=== PATIENT | female | born 1970 | race Caucasian/White ===

== ENCOUNTER 2019-09-15 05:41 | Day surgery (SDC) | payer BC ==
--- NOTE | 2019-09-07 16:50 | HP ---
HISTORY AND PHYSICAL: DATE OF ADMISSION: 09/15/19 She will be coming into the main campus of [facility] on 09/15/19 for right knee arthroscopic surgery. CHIEF COMPLAINT: Right knee pain posteriorly and medially. HISTORY OF PRESENT ILLNESS: She has been having trouble with this knee since March. There was not a particular injury, but it has become very bothersome and difficulty with pivoting, getting up and down stairs, and generally walking. She has been seen and checked by Dr. Rivers, Dr. Moore, Dr. Vanessa, and a recent MRI scan was done showing medial meniscal tearing and some sprain of the ACL. We believe the main problem is the meniscal tearing, and we have recommended the arthroscopic surgery. PAST MEDICAL HISTORY: General health has been good. No heart attack. No chest pain. She is able to walk up 2 flights of stairs without chest pain, without shortness of breath. She is a smoker and is working with [employer]. She does social drinking. She has not had any cancers. No history of DVT or pulmonary embolism. PAST SURGICAL HISTORY: Includes bilateral carpal tunnel syndromes, reduction mammoplasty, exploratory laparotomy for [employer] concerns, irritable bowel syndrome, several D and C's, low back surgery in 2010 including spinal instrumentation, and gallbladder removal in 2011. She has not had major complications with anesthesia. ALLERGIES: She is allergic only to ADHESIVE and she knows she is okay to have Ancef. FAMILY HISTORY: Positive for cancer, cardiac and diabetes. SOCIAL HISTORY: Lives with her , works at the hospital. At home, there are 5 stairs to get in and out of the house. She knows that she is okay to have Ancef. PHYSICAL EXAMINATION GENERAL: Well nourished, well developed, not acutely distressed. VITAL SIGNS: Temp 99, weight 170, pulse 97, blood pressure 138/88. HEENT: The head is NC/AT. LUNGS: Clear bilaterally. HEART: Regular. S1, S2 normal. No murmurs or gallops. ABDOMEN: Soft, nontender. I do not appreciate organomegaly. EXTREMITIES: The right knee shows a small effusion. Extension 0, flexion 120. Tenderness to the medial joint line, marked medial joint discomfort with external rotation of the leg. MCL stable. [place] and posterior drawer are normal. Lateral collateral stable. The thigh and calf are soft. NEUROLOGIC: Cranial nerves are grossly intact. IMPRESSION: Right knee medial meniscal tearing. PLAN: We have recommended arthroscopic surgery for the right knee. Goals, risks, and complications have been reviewed. Questions were answered and guarantees were not made regarding the outcome of arthroscopic surgery right knee on 09/15/19. [id number]/[facility] #: [id number] MTDD
[~2019-09-15 05:41] MED LIST: Buffered Lidocaine 1% SYRIN* 1 ML/SYRINGE INTRADERM ONE
[2019-09-15] MEDS ORDERED: Lactated Ringers 1000 ML Bag* 1,000 ML IV SCH (06:00)
[2019-09-15] MEDS ORDERED: Sodium Citrate/Citric Acid* 15 ML UDC PO ONE (06:00)
[2019-09-15] MEDS ORDERED: ceFAZolin 2 GM in NS PREMIX(*) 2 GM/100 ML BAG IVPB ONE (06:11)
[2019-09-15] MEDS ORDERED: Buffered Lidocaine 1% SYRIN* 1 ML/SYRINGE INTRADERM ONE (06:11)
[2019-09-15] MEDS ORDERED: Sodium Citrate/Citric Acid* 15 ML UDC ONE (06:11)
[2019-09-15] MEDS ORDERED: Bupivacaine 0.5% W/EPI SDV* 10 ML VIAL INJ ONE (07:13)
[2019-09-15] MEDS ORDERED: Propofol* 10 MG/ML 20 ML BTL ONE (07:25)
[2019-09-15] MEDS ORDERED: Midazolam* 1 MG/ML 2 ML VIAL (2 MG) ONE (07:25)
[2019-09-15] MEDS ORDERED: Lidocaine 2% PF * 5 ML VIAL ONE (07:25)
[2019-09-15] MEDS ORDERED: fentaNYL* 50 MCG/ML 2 ML VIAL (100 MCG VIAL) ONE ×3 (07:25→09:39)
[2019-09-15] MEDS ORDERED: Dexamethasone IV* 4 MG/ML 1 ML (4 MG) ONE (07:32)
[2019-09-15] MEDS ORDERED: Ondansetron INJ* 2 MG/ML VIAL ONE (07:55)
[2019-09-15] MEDS ORDERED: Ketorolac INJ* 30 MG/ML 1 ML VIAL ONE (07:55)
[2019-09-15] MEDS ORDERED: DiMENhydriNATE IV* 50 MG/ML VIAL IV PUSH PRN (08:07)
[2019-09-15] MEDS ORDERED: fentaNYL* 50 MCG/ML 2 ML VIAL (100 MCG VIAL) IV PRN (08:07)
[2019-09-15] MEDS ORDERED: Naloxone* 0.4 MG/ML 1 ML VIAL IV PRN (08:07)
[2019-09-15] MEDS ORDERED: Acetaminophen IV 1GM/100ML * 1,000 MG/100 ML VIAL IVPB ONE (08:07)
[2019-09-15] MEDS ORDERED: Succinylcholine* 20 MG/ML 10 ML VIAL ONE (08:47)
[2019-09-15 10:39] VITALS: BP 115/76
--- NOTE | 2019-09-15 14:08 | OP ---
DATE OF OPERATION: 09/15/19 - SDS DATE OF : 68 SURGICAL CARE: Right knee. SURGEON: Adria Estevez MD. ASSISTANTS: IMMANUEL Wheeler. ANESTHESIOLOGIST: Dr. Bryan Liu. ANESTHESIA: LMA, general. PRE-OP DIAGNOSIS: Right knee medial meniscal tear. POST-OP DIAGNOSIS: Right knee medial meniscal tear. OPERATIVE PROCEDURE: Right knee subtotal medial meniscectomy. COMPLICATIONS: There were no complications. DRAINS: There were no drains. TOURNIQUET: Tourniquet control was utilized on the right leg 275 and then 300. ESTIMATED BLOOD LOSS: 100 mL. REPLACEMENT: Crystalloid fluids. INDICATION: Persistent medial right knee pain. DESCRIPTION OF PROCEDURE: The patient was brought to the operating room and placed on the operating room table in supine position. Following the administration of the anesthetic, the right lower extremity was wrapped with a proximal thigh tourniquet. The leg was given a preliminary chlorhexidine prep and then a formal ChloraPrep from the tourniquet to the foot. After prepping, draping, and sealing off, we did our universal protocol time-out confirming Elva Comer and a plan for right knee arthroscopic surgery. We all agreed and we proceeded. The tourniquet was elevated to 275. The initial survey of the joint showed that the patellofemoral joint was in good condition. The medial and lateral gutters were clear. The ACL was in continuity (MRI scan had concern about ACL injury). The medial femoral condyle, medial tibial plateau were in good condition. The medial meniscus was torn up in complex fashion posteriorly. In the initial part of the case, we were visualizing and then after some anterior synovectomy to remove the ligamentum mucosa, we had some bleeding and the inflow catheter was repositioned as it was outside the joint and then the joint was irrigated. We were able to proceed with partial medial meniscectomy. The meniscectomy was completed with a curved shaver, small and larger baskets and left curving basket. Care was taken not to injure the adjacent medial femoral condyle, medial tibial plateau during the meniscectomy and the meniscectomy was done with the knee in valgus stress between 0 and 30 degrees of flexion with some external rotation of the foot. The meniscus was removed from the lateral portal at the anterior transition. Once the surgical care was completed, a photograph was obtained. The knee was then irrigated with another 5 L of saline irrigation, then emptied, then instilled with Marcaine with epinephrine 30 mL. The skin portals were closed with interrupted 3-0 Surgipro and a dressing applied after washing and drying of Betadine soaked release. Sterile gauze, Webril, cryotherapy cuff, ABD pads and then a 6-inch Brad bandage loosely applied. The patient was returned to the recovery room in stable and satisfactory condition, having tolerated the procedure very well. [id number]/[facility] #: [id number] [facility]
== END 2019-09-15 10:50 | disposition home or self-care (01) ==
LOC: OR 05:41
PROVIDERS: ATTEND Orthopaedic Surgery
DX: S83.241D Other tear of medial meniscus, current injury, right knee, subsequent encounter (principal); F17.200 Nicotine dependence, unspecified, uncomplicated; X58.XXXD Exposure to other specified factors, subsequent encounter; Y92.9 Unspecified place or not applicable
CPT/HCPCS: 81025; A9270-GY; J0330; J0690; J1100; J1885; J2250; J2405; J2704; J3010